=== PATIENT | male | born 1985 | race Two or more races ===

== ENCOUNTER 2024-03-25 18:49 | Emergency (ER) | payer MEDICAID, OTHER ==
[~2024-03-25] VITALS: Ht 172.7 cm; Wt 77.1 kg
[2024-03-25] MEDS ORDERED: KETOROLAC TROMETHAMINE 15 MG/ML VIAL ONE (21:38)
[2024-03-25] MEDS ORDERED: ACETAMINOPHEN ES 500 MG TABLET ONE (21:38)
[2024-03-25] MEDS: KETOROLAC TROMETHAMINE 15 MG/ML VIAL IM ONE (21:46)
[2024-03-25] MEDS: ACETAMINOPHEN ES 500 MG TABLET PO ONE (21:46)
[2024-03-25] MEDS ORDERED: CIPR10DR LEFT EAR (22:05)
[2024-03-25] MEDS ORDERED: IBUP-1955 PO (22:05)
[2024-03-25] MEDS ORDERED: ACET-2605 PO (22:05)
[2024-03-25 22:17] VITALS: BP 128/73; TEMP 98; O2SAT 98
== END 2024-03-25 22:18 | disposition home or self-care (01) ==
LOC: ER 18:55
DX: M54.59 Other low back pain (principal); H60.92 Unspecified otitis externa, left ear; W18.39XA Other fall on same level, initial encounter; Y93.68 Activity, volleyball (beach) (court); Y92.89 Other specified places as the place of occurrence of the external cause; Y99.8 Other external cause status
CPT/HCPCS: 99283; 96372; 72220; J1885